=== PATIENT | female | born 1985 | race Caucasian/White ===

== ENCOUNTER 2020-05-21 12:39 | Emergency (ER) | payer OTHER ==
[2020-05-21 13:58] LABS: BASOPHIL 0.6 % (0-2); EOSINOPHIL 0.6 % (0-5); HCT 37.7 % (37.0-47.0); HGB 12.7 g/dl (12.5-16.0); LYMPHOCYTE 17.6 % (15-48); MCHC 33.7 g/dL (32.0-36.0); MONOCYTE 5.7 % (0-12); MPV 10.2 fL (6.0-9.5); NEUTROPHIL 75.4 % (41-80); NRBC 0; PLT 214 K/uL (150-400); RDW 11.8 % (11.5-14.0); WBC 7.9 K/uL (4.0-10.5)
[2020-05-21 14:13] LABS: ALBUMIN 3.7 g/dL (3.4-5.0); BILIRUBIN - TOTAL 0.4 mg/dL (0.2-1.0); BUN/CREAT RATIO (CALC) 17.3 RATIO; CREATININE 0.81 mg/dL (0.51-0.95); GLOBULIN (CALCULATION) 3.2 g/dL; POTASSIUM 3.5 mmol/L (3.5-5.1); TOTAL PROTEIN 6.9 g/dL (6.4-8.2)
[2020-05-21] MEDS ORDERED: CYCLOBENZAPRINE10 MG PO (15:07)
[2020-05-21] MEDS ORDERED: NAPROXEN500 MG PO (15:07)
== END 2020-05-21 15:29 | disposition home or self-care (01) ==
LOC: FER 12:39
PROVIDERS: Emergency Medicine
DX: S39.012A Strain of muscle, fascia and tendon of lower back, initial encounter (principal); R55 Syncope and collapse; X58.XXXA Exposure to other specified factors, initial encounter
CPT/HCPCS: 36415; 71046; 72110; 80053; 85025; 93005

== ENCOUNTER 2020-08-10 09:35 | Emergency (ER) | payer OTHER ==
[~2020-08-10 09:35] MED LIST: CYCLOBENZAPRINE10 MG PO; NAPROXEN500 MG PO
== END 2020-08-10 10:53 | disposition home or self-care (01) ==
LOC: FER 09:35
DX: S06.0X0A Concussion without loss of consciousness, initial encounter (principal); W51.XXXA Accidental striking against or bumped into by another person, initial encounter; Y92.69 Other specified industrial and construction area as the place of occurrence of the external cause; Y99.0 Civilian activity done for income or pay
CPT/HCPCS: 70450